=== PATIENT | female | born 1980 | race Caucasian/White ===

== ENCOUNTER 2017-01-31 15:55 | Emergency (ER) | payer MEDICAID ==
[~2017-01-31] VITALS: Ht 162.6 cm; Wt 97.7 kg
[~2017-01-31 15:55] MED LIST: LEVO0.179 PO
[2017-01-31 16:07] VITALS: BP 113/60
--- NOTE | 2017-01-31 19:14 | NUR ---
PATIENT TO ER BED 5
--- NOTE | 2017-01-31 19:15 | NUR ---
PATIENT PRESENTS TO ED WITH C/O SINUS PAIN , CONGESTION , FRONTAL LOBE PAIN, THROAT ITCHING, NAUSEA X 2 DAYS. HX---HYPOTHYROID, ANEMIA, HYPERLIPIDEMIA RX---LEVOTHYROXINE, FE . SKIN IS PINK/WARM/DRY; AAOX4 WITH EVEN AND STEADY GAIT; PATIENT STATES PAIN OF 4/10 AT THIS TIME; VSS; PATIENT POSITIONED FOR COMFORT; HOB ELEVATED; BEDRAILS UP X2; BED DOWN. ER MD MADE AWARE OF PT STATUS.
[2017-01-31 19:49] VITALS: BP 118/78
--- NOTE | 2017-01-31 19:49 | NUR ---
Patient discharged with v/s stable. Written and verbal after care instructions given and explained BY DR. OLMSTEAD Patient alert, oriented and verbalized understanding of instructions BY DR. OLMSTEAD. Ambulatory with steady gait. All questions addressed prior to discharge BY DR. OLMSTEAD. ID band removed. Patient advised to follow up with PMD BY DR. OLMSTEAD. Rx of AUGMENTIN 875TAB 1 TAB ORALLY 2 TIMES A DAY given BY DR. OLMSTEAD. Patient educated on indication of medication including possible reaction and side effects BY DR. OLMSTEAD. Opportunity to ask questions provided and answeredBY DR. OLMSTEAD.
== END 2017-01-31 19:57 | disposition home or self-care (01) ==
LOC: MED 15:55
DX: J01.00 Acute maxillary sinusitis, unspecified (principal); E11.9 Type 2 diabetes mellitus without complications; E78.5 Hyperlipidemia, unspecified; E05.90 Thyrotoxicosis, unspecified without thyrotoxic crisis or storm; Z86.2 Personal history of diseases of the blood and blood-forming organs and certain disorders involving the immune mechanism
CPT/HCPCS: 99283

== ENCOUNTER 2020-05-16 13:32 | Inpatient (IN) | payer MEDICAID, SELFPAY ==
[~2020-05-16] VITALS: Ht 165.1 cm; Wt 63.5 kg
[2020-05-16 13:51] VITALS: BP 148/75
[2020-05-16 14:55] LABS: BASOPHILS % (AUTO) 0.3 % (0.0-2.0); HEMATOCRIT 30.1 % (36-48); LYMPHOCYTES # (AUTO) 0.3 K/uL (2.5-16.5); LYMPHOCYTES % (AUTO) 4.9 % (20.5-51.1); MEAN CORPUSCULAR HEMOGLOBIN 30 pg (27-31); MEAN CORPUSCULAR HGB CONC 33 g/dL (33-37); MEAN CORPUSCULAR VOLUME 89.7 fL (80-94); MONOCYTES # (AUTO) 0.1 K/uL (0.8-1.0); MONOCYTES % (AUTO) 1.6 % (1.7-9.3); NEUTROPHILS # (AUTO) 5.6 K/uL (1.8-7.7); NEUTROPHILS % (AUTO) 93.2 % (42.2-75.2); PLATELET COUNT (AUTO) 267 K/uL (140-450); RED BLOOD CELL COUNT(AUTO) 3.36 MIL/uL (4.20-5.40); RED CELL DISTRIBUTION WIDTH 16.3 % (11.6-13.7)
[2020-05-16 15:20] LABS: ALBUMIN 3.1 g/dL (3.4-5.0); CARBON DIOXIDE 24.7 mmol/L (21-32); POTASSIUM 3.7 mmol/L (3.5-5.1); TOTAL BILIRUBIN 0.4 mg/dL (0.0-1.0)
[2020-05-16 15:42] LABS: C-REACTIVE PROTEIN QUANT 39.6 mg/dL (0.0-0.9)
[2020-05-16 16:01] LABS: PROTHROMBIN TIME 8.9 secs (10.8-13.4)
[2020-05-16 16:09] LABS: CKMB RELATIVE INDEX 0.5 (0.0-2.5); CREATINE KINASE MB 8.7 ng/mL (0-3.6)
[2020-05-16 16:42] LABS: APPEARANCE,URINE HAZY (CLEAR); BILIRUBIN,URINE NEGATIVE (NEGATIVE); BLOOD, URINE 3+ (NEGATIVE); COLOR,URINE YELLOW (YELLOW); LEUKOCYTE ESTERASE ,URINE NEGATIVE (NEGATIVE); NITRITE, URINE POSITIVE (NEGATIVE); UGLUCOSE NEGATIVE (NEGATIVE)
[2020-05-16] MEDS ORDERED: AZITHROMYCIN 500 MG in DEXTROSE 5% 250 ML IV ONE (19:30)
[2020-05-16] MEDS ORDERED: DEXAMETHASONE 10 MG/ML VIAL IVP ONE (19:30)
[2020-05-16 20:13] VITALS: BP 129/88
[2020-05-16] MEDS ORDERED: AZITHROMYCIN 500 MG INJ VIAL IV ONE (21:17)
[2020-05-16] MEDS ORDERED: cefTRIAXone 1,000 MG VIAL ONE (21:17)
[2020-05-16] MEDS ORDERED: DEXAMETHASONE 10 MG/ML VIAL ONE (21:17)
[2020-05-17] MEDS ORDERED: ALBUTEROL HFA MDI 90 MCG/ACTUATION 8 GM INH PRN (02:45)
[2020-05-17] MEDS ORDERED: POTASSIUM CHLORIDE 10 MEQ TABER PO PRN (02:45)
[2020-05-17] MEDS ORDERED: ONDANSETRON 4 MG/2 ML VIAL IM/IVP PRN (02:45)
[2020-05-17] MEDS ORDERED: DOCUSATE SODIUM 100 MG GELCAP PO PRN (02:45)
[2020-05-17] MEDS: NACL 0.9% 1,000 ML IV SCH ×2 (03:23→22:00)
[2020-05-17] MEDS: AZITHROMYCIN 250 MG TAB PO SCH (08:25)
[2020-05-17] MEDS: ZINC SULF 220 MG CAP PO SCH (08:46)
[2020-05-17] MEDS: ASCORBIC ACID 500 MG TAB PO SCH (08:46)
[2020-05-17 10:00] LABS: CHOL/HDL RATIO 5.8 (1-4.5); FREE T4 (FREE THYROXINE) 0.2 ng/dL (0.76-1.46); MAGNESIUM 2.3 mg/dL (1.8-2.4); PHOSPHORUS 3.9 mg/dL (2.5-4.9); THYROID STIMULATING HORMONE 67.38 uIU/mL (0.34-3.74)
[2020-05-17] MEDS: ACETAMINOPHEN 325 MG TAB PO PRN ×2 (13:37→23:07)
[2020-05-17] MEDS ORDERED: LEVOTHYROXINE SODIUM 0.175 MG PO SCH (14:45)
[2020-05-17] MEDS ORDERED: LEVOTHYROXINE 0.075 MG, LEVOTHYROXINE 0.1 MG PO SCH ×2 (14:51)
[2020-05-17] MEDS: LEVOTHYROXINE 0.075 MG TAB ONE ×2 (15:43→16:14)
[2020-05-17] MEDS ORDERED: LEVOTHYROXINE 0.1 MG TAB ONE (15:43)
[2020-05-18] MEDS ORDERED: LEVOTHYROXINE 0.075 MG TAB ONE (06:22)
[2020-05-18] MEDS ORDERED: LEVOTHYROXINE 0.1 MG TAB ONE (06:23)
[2020-05-18] MEDS: ACETAMINOPHEN 325 MG TAB PO PRN ×2 (07:02→14:16)
[2020-05-18] MEDS: LEVOTHYROXINE 0.075 MG, LEVOTHYROXINE 0.1 MG PO SCH ×2 (07:02)
[2020-05-18 07:22] LABS: ANION GAP 16.8 (8-16); CARBON DIOXIDE 24.4 mmol/L (21-32); CREATININE 1.9 mg/dL (0.6-1.3); POTASSIUM 4.2 mmol/L (3.5-5.1)
[2020-05-18 08:08] LABS: T3 UPTAKE 10 % (24-39); T4 (THYROXINE) <0.4 ug/dL (4.5-12.0)
[2020-05-18 08:12] LABS: HEMATOCRIT 30.9 % (36-48); HEMOGLOBIN 10.3 g/dL (12.0-16.0); LYMPHOCYTES # (AUTO) 0.5 K/uL (2.5-16.5); LYMPHOCYTES % (AUTO) 4.8 % (20.5-51.1); MEAN CORPUSCULAR HEMOGLOBIN 30 pg (27-31); MEAN CORPUSCULAR HGB CONC 33 g/dL (33-37); MONOCYTES # (AUTO) 0.3 K/uL (0.8-1.0); MONOCYTES % (AUTO) 3.3 % (1.7-9.3); NEUTROPHILS # (AUTO) 8.8 K/uL (1.8-7.7); NEUTROPHILS % (AUTO) 91.9 % (42.2-75.2); PLATELET COUNT (AUTO) 448 K/uL (140-450); RED BLOOD CELL COUNT(AUTO) 3.47 MIL/uL (4.20-5.40); RED CELL DISTRIBUTION WIDTH 16.4 % (11.6-13.7); WHITE BLOOD COUNT (AUTO) 9.6 K/uL (4.8-10.8)
[2020-05-18] MEDS: ZINC SULF 220 MG CAP PO SCH (10:59)
[2020-05-18] MEDS: ASCORBIC ACID 500 MG TAB PO SCH (10:59)
[2020-05-18] MEDS: AZITHROMYCIN 250 MG TAB PO SCH (10:59)
[2020-05-18] MEDS ORDERED: remdesivir CLINICAL MONITORING 1 EA MISC MC PRN (15:00)
[2020-05-18] MEDS ORDERED: REMDESIVIR (EUA) 200 MG in NACL 0.9% 100 ML IV SCH (17:00)
[2020-05-18 20:00] VITALS: BP 120/81
[2020-05-18] MEDS: LORazepam 1 MG TAB PO PRN (23:33)
[2020-05-19] VITALS: BP 122/65
[2020-05-19 04:00] VITALS: BP 133/63
[2020-05-19] MEDS ORDERED: LEVOTHYROXINE 0.075 MG TAB ONE (06:33)
[2020-05-19] MEDS ORDERED: LEVOTHYROXINE 0.1 MG TAB ONE (06:33)
[2020-05-19] MEDS: LEVOTHYROXINE 0.075 MG, LEVOTHYROXINE 0.1 MG PO SCH ×2 (06:52)
[2020-05-19 08:00] VITALS: BP 123/86
[2020-05-19 08:20] LABS: BASOPHILS % (AUTO) 0.2 % (0.0-2.0); HEMATOCRIT 29.6 % (36-48); HEMOGLOBIN 10.1 g/dL (12.0-16.0); LYMPHOCYTES # (AUTO) 0.5 K/uL (2.5-16.5); LYMPHOCYTES % (AUTO) 6.4 % (20.5-51.1); MEAN CORPUSCULAR HEMOGLOBIN 31 pg (27-31); MEAN CORPUSCULAR HGB CONC 34 g/dL (33-37); MEAN CORPUSCULAR VOLUME 90.2 fL (80-94); MONOCYTES # (AUTO) 0.3 K/uL (0.8-1.0); NEUTROPHILS # (AUTO) 7.6 K/uL (1.8-7.7); NEUTROPHILS % (AUTO) 89.4 % (42.2-75.2); PLATELET COUNT (AUTO) 495 K/uL (140-450); RED BLOOD CELL COUNT(AUTO) 3.29 MIL/uL (4.20-5.40); RED CELL DISTRIBUTION WIDTH 16.1 % (11.6-13.7); WHITE BLOOD COUNT (AUTO) 8.5 K/uL (4.8-10.8)
[2020-05-19 08:21] LABS: CARBON DIOXIDE 23.8 mmol/L (21-32); CREATININE 1.8 mg/dL (0.6-1.3); POTASSIUM 4.8 mmol/L (3.5-5.1)
[2020-05-19] MEDS ORDERED: COMMUNICATION ORDER MC SCH (09:00)
[2020-05-19] MEDS: ZINC SULF 220 MG CAP PO SCH (09:42)
[2020-05-19] MEDS: ASCORBIC ACID 500 MG TAB PO SCH (09:42)
[2020-05-19] MEDS: AZITHROMYCIN 250 MG TAB PO SCH (09:42)
[2020-05-19 09:57] LABS: ALBUMIN 2.8 g/dL (3.4-5.0); BILIRUBIN,DIRECT 0.1 mg/dL (0.0-0.3); TOTAL BILIRUBIN 0.4 mg/dL (0.0-1.0)
[2020-05-19 12:00] VITALS: BP 135/85
[2020-05-19] MEDS ORDERED: DEXAMETHASONE 4 MG/ML VIAL IVP SCH (15:38)
[2020-05-19 16:00] VITALS: BP 125/74
[2020-05-19] MEDS: REMDESIVIR (EUA) 100 MG in NACL 0.9% 100 ML IV SCH (17:00)
[2020-05-19 20:00] VITALS: BP 125/68
[2020-05-19] MEDS: ENOXAPARIN 60 MG/0.6 ML SYR SUBQ SCH (20:37)
[2020-05-19] MEDS: HYDROcodone/APAP 7.5/325 MG 1 TAB PO PRN (21:42)
[2020-05-20] VITALS: BP 116/67
[2020-05-20 04:00] VITALS: BP 118/75
[2020-05-20] MEDS ORDERED: LEVOTHYROXINE 0.075 MG TAB ONE (05:21)
[2020-05-20] MEDS ORDERED: LEVOTHYROXINE 0.1 MG TAB ONE (05:22)
[2020-05-20] MEDS: LEVOTHYROXINE 0.075 MG, LEVOTHYROXINE 0.1 MG PO SCH ×2 (05:32)
[2020-05-20 06:48] LABS: BASOPHILS % (AUTO) 0.1 % (0.0-2.0); HEMATOCRIT 28.5 % (36-48); HEMOGLOBIN 9.7 g/dL (12.0-16.0); LYMPHOCYTES # (AUTO) 0.7 K/uL (2.5-16.5); LYMPHOCYTES % (AUTO) 6.6 % (20.5-51.1); MEAN CORPUSCULAR HEMOGLOBIN 31 pg (27-31); MEAN CORPUSCULAR HGB CONC 34 g/dL (33-37); MEAN CORPUSCULAR VOLUME 90.1 fL (80-94); MONOCYTES # (AUTO) 0.5 K/uL (0.8-1.0); MONOCYTES % (AUTO) 4.8 % (1.7-9.3); NEUTROPHILS # (AUTO) 9.5 K/uL (1.8-7.7); NEUTROPHILS % (AUTO) 88.5 % (42.2-75.2); PLATELET COUNT (AUTO) 523 K/uL (140-450); RED BLOOD CELL COUNT(AUTO) 3.17 MIL/uL (4.20-5.40); RED CELL DISTRIBUTION WIDTH 16.1 % (11.6-13.7); WHITE BLOOD COUNT (AUTO) 10.7 K/uL (4.8-10.8)
[2020-05-20 06:55] LABS: ALBUMIN 2.8 g/dL (3.4-5.0); BILIRUBIN,DIRECT 0.1 mg/dL (0.0-0.3); TOTAL BILIRUBIN 0.3 mg/dL (0.0-1.0)
[2020-05-20 06:59] LABS: ANION GAP 13.4 (8-16); CARBON DIOXIDE 25.2 mmol/L (21-32); CREATININE 1.6 mg/dL (0.6-1.3); POTASSIUM 4.6 mmol/L (3.5-5.1)
[2020-05-20 08:00] VITALS: BP 91/52
[2020-05-20] MEDS: DEXAMETHASONE 4 MG/ML VIAL IVP SCH (09:27)
[2020-05-20] MEDS: ZINC SULF 220 MG CAP PO SCH (09:27)
[2020-05-20] MEDS: AZITHROMYCIN 250 MG TAB PO SCH (09:27)
[2020-05-20] MEDS: ASCORBIC ACID 500 MG TAB PO SCH (09:27)
[2020-05-20] MEDS: ENOXAPARIN 60 MG/0.6 ML SYR SUBQ SCH ×2 (09:27→21:00)
[2020-05-20] MEDS: HYDROcodone/APAP 7.5/325 MG 1 TAB PO PRN (11:05)
[2020-05-20] MEDS: PROMETHAZINE DM 6.25/15MG-5ML ORASYR PO PRN (11:39)
[2020-05-20 12:00] VITALS: BP 124/69
[2020-05-20 16:00] VITALS: BP 112/56
[2020-05-20] MEDS: REMDESIVIR (EUA) 100 MG in NACL 0.9% 100 ML IV SCH (16:00)
[2020-05-21 06:10] LABS: HEMATOCRIT 27.6 % (36-48); HEMOGLOBIN 9.4 g/dL (12.0-16.0); LYMPHOCYTES # (AUTO) 0.9 K/uL (2.5-16.5); MEAN CORPUSCULAR HEMOGLOBIN 31 pg (27-31); MEAN CORPUSCULAR HGB CONC 34 g/dL (33-37); MEAN CORPUSCULAR VOLUME 90.1 fL (80-94); MONOCYTES # (AUTO) 0.6 K/uL (0.8-1.0); MONOCYTES % (AUTO) 4.2 % (1.7-9.3); PLATELET COUNT (AUTO) 538 K/uL (140-450); RED BLOOD CELL COUNT(AUTO) 3.06 MIL/uL (4.20-5.40); RED CELL DISTRIBUTION WIDTH 15.9 % (11.6-13.7); WHITE BLOOD COUNT (AUTO) 13.4 K/uL (4.8-10.8)
[2020-05-21 06:34] LABS: ANION GAP 13.2 (8-16); CARBON DIOXIDE 25.9 mmol/L (21-32); CREATININE 1.5 mg/dL (0.6-1.3); POTASSIUM 4.1 mmol/L (3.5-5.1)
[2020-05-21 06:36] LABS: LYMPHOCYTES % (AUTO) 6.6 % (20.5-51.1); NEUTROPHILS % (AUTO) 89.2 % (42.2-75.2)
[2020-05-21 06:52] LABS: ALBUMIN 2.9 g/dL (3.4-5.0); BILIRUBIN,DIRECT 0.1 mg/dL (0.0-0.3); TOTAL BILIRUBIN 0.3 mg/dL (0.0-1.0)
[2020-05-21] MEDS: ENOXAPARIN 60 MG/0.6 ML SYR SUBQ SCH ×2 (09:00→21:37)
[2020-05-21] MEDS: ZINC SULF 220 MG CAP PO SCH (09:00)
[2020-05-21] MEDS: ASCORBIC ACID 500 MG TAB PO SCH (09:00)
[2020-05-21] MEDS: LEVOTHYROXINE SODIUM 100 MCG VIAL IV SCH (09:00)
[2020-05-21] MEDS: DEXAMETHASONE 4 MG/ML VIAL IVP SCH (09:00)
[2020-05-21] MEDS: REMDESIVIR (EUA) 100 MG in NACL 0.9% 100 ML IV SCH (17:42)
[2020-05-21 20:00] VITALS: BP 118/66
[2020-05-21 20:23] LABS: URINE TOTAL PROTEIN 193.9 mg/dL (0-12)
[2020-05-21] MEDS ORDERED: cefTRIAXone 1,000 MG VIAL ONE (21:14)
[2020-05-21] MEDS: PROMETHAZINE DM 6.25/15MG-5ML ORASYR PO PRN (22:02)
[2020-05-22] VITALS: BP 124/65
[2020-05-22] MEDS ORDERED: guaiFENesin DM 200/20 MG-10 ML 10 ML UDC PO ONE (00:09)
[2020-05-22 04:00] VITALS: BP 103/55
[2020-05-22] MEDS: PROMETHAZINE DM 6.25/15MG-5ML ORASYR PO PRN (05:15)
[2020-05-22 06:24] LABS: HEMATOCRIT 27.3 % (36-48); HEMOGLOBIN 9.2 g/dL (12.0-16.0); LYMPHOCYTES # (AUTO) 0.7 K/uL (2.5-16.5); LYMPHOCYTES % (AUTO) 6.2 % (20.5-51.1); MEAN CORPUSCULAR HEMOGLOBIN 30 pg (27-31); MEAN CORPUSCULAR HGB CONC 34 g/dL (33-37); MEAN CORPUSCULAR VOLUME 89.1 fL (80-94); MONOCYTES # (AUTO) 0.5 K/uL (0.8-1.0); MONOCYTES % (AUTO) 3.9 % (1.7-9.3); NEUTROPHILS # (AUTO) 10.9 K/uL (1.8-7.7); NEUTROPHILS % (AUTO) 89.9 % (42.2-75.2); PLATELET COUNT (AUTO) 499 K/uL (140-450); RED BLOOD CELL COUNT(AUTO) 3.07 MIL/uL (4.20-5.40); RED CELL DISTRIBUTION WIDTH 16.2 % (11.6-13.7); WHITE BLOOD COUNT (AUTO) 12.1 K/uL (4.8-10.8)
[2020-05-22 06:56] LABS: ANION GAP 10.9 (8-16); CARBON DIOXIDE 27.3 mmol/L (21-32); CREATININE 1.5 mg/dL (0.6-1.3); POTASSIUM 4.2 mmol/L (3.5-5.1)
[2020-05-22 07:01] LABS: ALBUMIN 2.8 g/dL (3.4-5.0); BILIRUBIN,DIRECT 0.1 mg/dL (0.0-0.3); TOTAL BILIRUBIN 0.4 mg/dL (0.0-1.0)
[2020-05-22 08:00] VITALS: BP 103/67
[2020-05-22] MEDS: ASCORBIC ACID 500 MG TAB PO SCH (10:12)
[2020-05-22] MEDS: ZINC SULF 220 MG CAP PO SCH (10:12)
[2020-05-22] MEDS: DEXAMETHASONE 4 MG/ML VIAL IVP SCH (10:13)
[2020-05-22] MEDS: LEVOTHYROXINE SODIUM 100 MCG VIAL IV SCH (10:13)
[2020-05-22] MEDS: ENOXAPARIN 60 MG/0.6 ML SYR SUBQ SCH ×2 (10:15→21:52)
[2020-05-22 12:00] VITALS: BP 115/70
[2020-05-22 16:00] VITALS: BP 110/67
[2020-05-22] MEDS: REMDESIVIR (EUA) 100 MG in NACL 0.9% 100 ML IV SCH (16:00)
[2020-05-22 20:00] VITALS: BP 110/62
[2020-05-23] VITALS: BP 119/67
[2020-05-23 04:00] VITALS: BP 107/67
[2020-05-23 06:38] LABS: HEMATOCRIT 27.8 % (36-48); HEMOGLOBIN 9.3 g/dL (12.0-16.0); LYMPHOCYTES # (AUTO) 0.7 K/uL (2.5-16.5); LYMPHOCYTES % (AUTO) 7.1 % (20.5-51.1); MEAN CORPUSCULAR HEMOGLOBIN 30 pg (27-31); MEAN CORPUSCULAR HGB CONC 34 g/dL (33-37); MEAN CORPUSCULAR VOLUME 90.5 fL (80-94); MONOCYTES # (AUTO) 0.5 K/uL (0.8-1.0); NEUTROPHILS % (AUTO) 87.9 % (42.2-75.2); PLATELET COUNT (AUTO) 513 K/uL (140-450); RED BLOOD CELL COUNT(AUTO) 3.08 MIL/uL (4.20-5.40); RED CELL DISTRIBUTION WIDTH 15.8 % (11.6-13.7); WHITE BLOOD COUNT (AUTO) 10.2 K/uL (4.8-10.8)
[2020-05-23 08:00] VITALS: BP 110/76
[2020-05-23 08:49] LABS: ALBUMIN 2.9 g/dL (3.4-5.0); ANION GAP 14.1 (8-16); CARBON DIOXIDE 25.2 mmol/L (21-32); CREATININE 1.4 mg/dL (0.6-1.3); MAGNESIUM 2.5 mg/dL (1.8-2.4); PHOSPHORUS 3.5 mg/dL (2.5-4.9); POTASSIUM 4.3 mmol/L (3.5-5.1); TOTAL BILIRUBIN 0.4 mg/dL (0.0-1.0)
[2020-05-23] MEDS: ZINC SULF 220 MG CAP PO SCH (09:28)
[2020-05-23] MEDS: DEXAMETHASONE 4 MG/ML VIAL IVP SCH (09:29)
[2020-05-23] MEDS: ASCORBIC ACID 500 MG TAB PO SCH (09:29)
[2020-05-23] MEDS: LEVOTHYROXINE SODIUM 100 MCG VIAL IV SCH (09:29)
[2020-05-23] MEDS: ENOXAPARIN 60 MG/0.6 ML SYR SUBQ SCH ×2 (09:29→20:02)
[2020-05-23 12:00] VITALS: BP 127/75
[2020-05-23 16:00] VITALS: BP 117/77
[2020-05-23 20:00] VITALS: BP 96/50
[2020-05-24] VITALS: BP_SYST 130; BP_DIAS 67; BP_DIAS 97
[2020-05-24] MEDS: LORazepam 1 MG TAB PO PRN (00:21)
[2020-05-24] MEDS: PROMETHAZINE DM 6.25/15MG-5ML ORASYR PO PRN (00:22)
[2020-05-24 04:00] VITALS: BP 100/62
[2020-05-24 06:32] LABS: HEMATOCRIT 28.3 % (36-48); HEMOGLOBIN 9.5 g/dL (12.0-16.0); MEAN CORPUSCULAR HEMOGLOBIN 30 pg (27-31); MEAN CORPUSCULAR HGB CONC 33 g/dL (33-37); MEAN CORPUSCULAR VOLUME 90.3 fL (80-94); PLATELET COUNT (AUTO) 525 K/uL (140-450); RED BLOOD CELL COUNT(AUTO) 3.14 MIL/uL (4.20-5.40); RED CELL DISTRIBUTION WIDTH 15.6 % (11.6-13.7); WHITE BLOOD COUNT (AUTO) 10.4 K/uL (4.8-10.8)
[2020-05-24 07:21] LABS: ALBUMIN 2.8 g/dL (3.4-5.0); ANION GAP 12.7 (8-16); CARBON DIOXIDE 26.6 mmol/L (21-32); CREATININE 1.3 mg/dL (0.6-1.3); PHOSPHORUS 3.1 mg/dL (2.5-4.9); POTASSIUM 4.3 mmol/L (3.5-5.1); TOTAL BILIRUBIN 0.3 mg/dL (0.0-1.0)
[2020-05-24 07:30] LABS: LYMPHOCYTES % (MANUAL) 10 % (20-46); MONOCYTES % (MANUAL) 8 % (5-12)
[2020-05-24 08:00] VITALS: BP 132/80
[2020-05-24] MEDS: ENOXAPARIN 60 MG/0.6 ML SYR SUBQ SCH ×2 (09:59→20:24)
[2020-05-24] MEDS: ZINC SULF 220 MG CAP PO SCH (10:16)
[2020-05-24] MEDS: FUROSEMIDE 20 MG TAB PO SCH (10:16)
[2020-05-24] MEDS: ASCORBIC ACID 500 MG TAB PO SCH (10:16)
[2020-05-24] MEDS: DEXAMETHASONE 4 MG/ML VIAL IVP SCH (10:17)
[2020-05-24] MEDS: LOSARTAN 25 MG TAB PO SCH (10:17)
[2020-05-24 12:00] VITALS: BP 128/75
[2020-05-24 16:00] VITALS: BP 116/60
[2020-05-24 20:00] VITALS: BP 105/64
[2020-05-25] VITALS: BP 100/58
[2020-05-25 04:00] VITALS: BP 113/57
[2020-05-25] MEDS: LEVOTHYROXINE 0.075 MG TAB PO SCH (06:31)
[2020-05-25 06:36] LABS: BASOPHILS % (AUTO) 0.1 % (0.0-2.0); HEMOGLOBIN 10.1 g/dL (12.0-16.0); LYMPHOCYTES % (AUTO) 10.8 % (20.5-51.1); MEAN CORPUSCULAR HEMOGLOBIN 31 pg (27-31); MEAN CORPUSCULAR HGB CONC 35 g/dL (33-37); MEAN CORPUSCULAR VOLUME 89.2 fL (80-94); MONOCYTES # (AUTO) 0.7 K/uL (0.8-1.0); MONOCYTES % (AUTO) 7.6 % (1.7-9.3); NEUTROPHILS # (AUTO) 7.9 K/uL (1.8-7.7); NEUTROPHILS % (AUTO) 81.5 % (42.2-75.2); PLATELET COUNT (AUTO) 530 K/uL (140-450); RED BLOOD CELL COUNT(AUTO) 3.25 MIL/uL (4.20-5.40); RED CELL DISTRIBUTION WIDTH 16.1 % (11.6-13.7); WHITE BLOOD COUNT (AUTO) 9.7 K/uL (4.8-10.8)
[2020-05-25 07:18] LABS: ANION GAP 12.5 (8-16); CARBON DIOXIDE 27.7 mmol/L (21-32); CREATININE 1.3 mg/dL (0.6-1.3); MAGNESIUM 2.4 mg/dL (1.8-2.4); PHOSPHORUS 3.6 mg/dL (2.5-4.9); POTASSIUM 4.2 mmol/L (3.5-5.1); TOTAL BILIRUBIN 0.4 mg/dL (0.0-1.0)
[2020-05-25 08:00] VITALS: BP 99/58
[2020-05-25] MEDS: ENOXAPARIN 60 MG/0.6 ML SYR SUBQ SCH (08:25)
[2020-05-25] MEDS: DEXAMETHASONE 4 MG/ML VIAL IVP SCH (08:46)
[2020-05-25] MEDS: FUROSEMIDE 20 MG TAB PO SCH (08:46)
[2020-05-25] MEDS: LOSARTAN 25 MG TAB PO SCH (08:46)
[2020-05-25] MEDS: ASCORBIC ACID 500 MG TAB PO SCH (08:46)
[2020-05-25] MEDS: ZINC SULF 220 MG CAP PO SCH (08:47)
[2020-05-25] MEDS ORDERED: DEC1 PO (11:27)
[2020-05-25] MEDS ORDERED: ASPI-1205 PO (11:29)
[2020-05-25] MEDS ORDERED: AZIT250T3 PO (11:29)
[2020-05-25 12:00] VITALS: BP 87/52
[2020-05-25 16:00] VITALS: BP 86/53
[2020-05-25 20:00] VITALS: BP 105/64
[2020-05-26 04:00] VITALS: BP 97/53
[2020-05-26] MEDS: LEVOTHYROXINE 0.075 MG TAB PO SCH (07:02)
[2020-05-26 08:00] VITALS: BP 98/51
[2020-05-26] MEDS: FUROSEMIDE 20 MG TAB PO SCH (09:00)
[2020-05-26] MEDS: LOSARTAN 25 MG TAB PO SCH (09:00)
[2020-05-26] MEDS: DEXAMETHASONE 4 MG/ML VIAL IVP SCH (09:11)
[2020-05-26] MEDS: ASCORBIC ACID 500 MG TAB PO SCH (09:11)
[2020-05-26] MEDS: ZINC SULF 220 MG CAP PO SCH (09:11)
[2020-05-26] MEDS: ENOXAPARIN 60 MG/0.6 ML SYR SUBQ SCH (09:12)
[2020-05-26 16:00] VITALS: BP 113/89
[2020-05-26 20:00] VITALS: BP 86/50
[2020-05-26 20:15] VITALS: BP 122/85
[2020-05-27 04:00] VITALS: BP 107/43
[2020-05-27] MEDS: LEVOTHYROXINE 0.075 MG TAB PO SCH (06:27)
[2020-05-27 08:00] VITALS: BP 110/50
[2020-05-27] MEDS: FUROSEMIDE 20 MG TAB PO SCH (08:19)
[2020-05-27] MEDS: DEXAMETHASONE 4 MG/ML VIAL IVP SCH (08:19)
[2020-05-27] MEDS: ASCORBIC ACID 500 MG TAB PO SCH (08:19)
[2020-05-27] MEDS: LOSARTAN 25 MG TAB PO SCH (08:19)
[2020-05-27] MEDS: ZINC SULF 220 MG CAP PO SCH (08:19)
[2020-05-27] MEDS: ENOXAPARIN 60 MG/0.6 ML SYR SUBQ SCH (08:20)
[2020-05-27 16:00] VITALS: BP 114/53
[2020-05-27 20:00] VITALS: BP 135/97
[2020-05-28 04:00] VITALS: BP 105/72
[2020-05-28 06:21] LABS: BASOPHILS % (AUTO) 0.2 % (0.0-2.0); HEMOGLOBIN 9.8 g/dL (12.0-16.0); LYMPHOCYTES # (AUTO) 1.2 K/uL (2.5-16.5); LYMPHOCYTES % (AUTO) 12.7 % (20.5-51.1); MEAN CORPUSCULAR HEMOGLOBIN 30 pg (27-31); MEAN CORPUSCULAR HGB CONC 34 g/dL (33-37); MEAN CORPUSCULAR VOLUME 90.1 fL (80-94); NEUTROPHILS % (AUTO) 76.1 % (42.2-75.2); PLATELET COUNT (AUTO) 423 K/uL (140-450); RED BLOOD CELL COUNT(AUTO) 3.22 MIL/uL (4.20-5.40); RED CELL DISTRIBUTION WIDTH 15.8 % (11.6-13.7); WHITE BLOOD COUNT (AUTO) 9.3 K/uL (4.8-10.8)
[2020-05-28] MEDS: LEVOTHYROXINE 0.075 MG TAB PO SCH (06:21)
[2020-05-28 06:54] LABS: ANION GAP 13.2 (8-16); CARBON DIOXIDE 29.9 mmol/L (21-32); CREATININE 1.3 mg/dL (0.6-1.3); POTASSIUM 4.1 mmol/L (3.5-5.1)
[2020-05-28] MEDS: ASCORBIC ACID 500 MG TAB PO SCH (09:31)
[2020-05-28] MEDS: ZINC SULF 220 MG CAP PO SCH (09:31)
[2020-05-28] MEDS: FUROSEMIDE 20 MG TAB PO SCH (09:31)
[2020-05-28] MEDS: LOSARTAN 25 MG TAB PO SCH (09:32)
[2020-05-28] MEDS: DEXAMETHASONE 4 MG/ML VIAL IVP SCH (09:32)
[2020-05-28] MEDS: ENOXAPARIN 60 MG/0.6 ML SYR SUBQ SCH (09:44)
[2020-05-28 15:51] LABS: APPEARANCE,URINE CLEAR (CLEAR); BILIRUBIN,URINE NEGATIVE (NEGATIVE); BLOOD, URINE 2+ (NEGATIVE); COLOR,URINE YELLOW (YELLOW); LEUKOCYTE ESTERASE ,URINE NEGATIVE (NEGATIVE); NITRITE, URINE NEGATIVE (NEGATIVE); PH,URINE 5.5 (5.0-9.0); UGLUCOSE NEGATIVE (NEGATIVE)
[2020-05-28 16:48] VITALS: BP 92/54
[2020-05-28 17:15] LABS: WBC,URINE 0-5 /HPF (0-5)
[2020-05-29] VITALS: BP 100/60
[2020-05-29] MEDS: LEVOTHYROXINE 0.075 MG TAB PO SCH (06:11)
[2020-05-29 06:15] LABS: BASOPHILS % (AUTO) 0.1 % (0.0-2.0); HEMOGLOBIN 9.7 g/dL (12.0-16.0); LYMPHOCYTES # (AUTO) 1.2 K/uL (2.5-16.5); LYMPHOCYTES % (AUTO) 12.3 % (20.5-51.1); MEAN CORPUSCULAR HEMOGLOBIN 31 pg (27-31); MEAN CORPUSCULAR HGB CONC 34 g/dL (33-37); MEAN CORPUSCULAR VOLUME 90.9 fL (80-94); MONOCYTES % (AUTO) 10.3 % (1.7-9.3); NEUTROPHILS # (AUTO) 7.3 K/uL (1.8-7.7); NEUTROPHILS % (AUTO) 77.3 % (42.2-75.2); PLATELET COUNT (AUTO) 375 K/uL (140-450); RED BLOOD CELL COUNT(AUTO) 3.19 MIL/uL (4.20-5.40); RED CELL DISTRIBUTION WIDTH 15.6 % (11.6-13.7); WHITE BLOOD COUNT (AUTO) 9.5 K/uL (4.8-10.8)
[2020-05-29 07:13] LABS: ANION GAP 13.7 (8-16); CARBON DIOXIDE 27.8 mmol/L (21-32); CREATININE 1.3 mg/dL (0.6-1.3); POTASSIUM 4.5 mmol/L (3.5-5.1)
[2020-05-29 08:26] VITALS: BP 121/76
[2020-05-29] MEDS: ZINC SULF 220 MG CAP PO SCH (08:28)
[2020-05-29] MEDS: LOSARTAN 25 MG TAB PO SCH (08:29)
[2020-05-29] MEDS: ASCORBIC ACID 500 MG TAB PO SCH (08:29)
[2020-05-29] MEDS: FUROSEMIDE 20 MG TAB PO SCH (08:29)
[2020-05-29] MEDS: ENOXAPARIN 60 MG/0.6 ML SYR SUBQ SCH (08:30)
[2020-05-29] MEDS: DEXAMETHASONE 4 MG/ML VIAL IVP SCH (08:30)
== END 2020-05-29 14:30 | disposition home or self-care (01) | DRG 720 ==
LOC: MED 13:32 → MTU 18:48 → MMU 05-17 08:27
PROVIDERS: ADMIT Emergency Medicine; ATTEND Emergency Medicine
PROC: XW033E5 Introduction of Remdesivir Anti-infective into Peripheral Vein, Percutaneous Approach, New Technology Group 5 (ICD-10-PCS; principal; 2020-05-22)
DX: A41.9 Sepsis, unspecified organism (principal); U07.1 COVID-19; E11.9 Type 2 diabetes mellitus without complications; J12.82 Pneumonia due to coronavirus disease 2019; E43 Unspecified severe protein-calorie malnutrition; N17.0 Acute kidney failure with tubular necrosis; J96.01 Acute respiratory failure with hypoxia; E03.9 Hypothyroidism, unspecified; N39.0 Urinary tract infection, site not specified; B96.20 Unspecified Escherichia coli [E. coli] as the cause of diseases classified elsewhere; Z68.23 Body mass index [BMI] 23.0-23.9, adult; E66.9 Obesity, unspecified; Z98.51 Tubal ligation status; E07.9 Disorder of thyroid, unspecified; Z79.899 Other long term (current) drug therapy; R80.9 Proteinuria, unspecified
CPT/HCPCS: 36415; 36600; 71045; 76770; 80048; 80053; 80076; 81001; 82550; 82553; 82570; 82728; 82803; 82948; 83036; 83605; 83615; 83735; 83880; 84100; 84436; 84439; 84443; 84479; 84484; 85025; 85379; 85384; 85610; 85651; 85730; 86140; 86900; 86901; 87040; 87081; 87086; 87804; 93005; 96365; 96367; 96375; 99291; J0456; J0696; J1100; J1644; J1650; J7030; J7060